=== PATIENT | female | born 1975 | race Caucasian/White ===

== ENCOUNTER 2022-04-27 08:28 | Day surgery (SDC) | payer OTHER ==
[~2022-04-27] VITALS: Ht 162.6 cm; Wt 100.7 kg
[2022-04-27] MEDS ORDERED: fentaNYL citrate 0.05 MG/ML VIAL ONE (09:10)
[2022-04-27] MEDS ORDERED: MIDAZOLAM 5 MG/5 ML VIAL ONE (09:10)
[2022-04-27] MEDS ORDERED: LIDOCAINE 2% 100 MG/5 ML UJET TP ONE (09:10)
[2022-04-27] MEDS ORDERED: diphenhydrAMINE 50 MG/ML VIAL ONE (09:10)
[2022-04-27] MEDS ORDERED: fentaNYL citrate 0.05 MG/ML VIAL IVP ONE (09:50)
[2022-04-27] MEDS ORDERED: MIDAZOLAM 2 MG/2 ML VIAL IVP ONE (09:50)
== END 2022-04-27 10:48 | disposition home or self-care (01) ==
LOC: MMU 08:28 → MDS 08:28
PROVIDERS: ATTEND Internal Medicine Gastroenterology
DX: Z12.11 Encounter for screening for malignant neoplasm of colon (principal); D12.3 Benign neoplasm of transverse colon; I10 Essential (primary) hypertension; K21.9 Gastro-esophageal reflux disease without esophagitis; M19.90 Unspecified osteoarthritis, unspecified site; Z90.49 Acquired absence of other specified parts of digestive tract; Z90.710 Acquired absence of both cervix and uterus; Z79.82 Long term (current) use of aspirin; Z79.899 Other long term (current) drug therapy; Z20.822 Contact with and (suspected) exposure to COVID-19
CPT/HCPCS: 45385; 87426; 88305; J2250; J3010; J1200